=== PATIENT | female | born 1945 | race Caucasian/White ===

== ENCOUNTER 2017-07-19 14:14 | Emergency (ER) | payer MEDICARE, BC ==
[2017-07-19 15:17] VITALS: TEMP 98.1
[2017-07-19 15:49] VITALS: BP 103/54; PULSE 78; RESP 18; O2SAT 100
== END 2017-07-19 15:45 | disposition home or self-care (01) | DRG 863 ==
LOC: ED 14:14
DX: T81.4XXA Infection following a procedure, initial encounter (principal); L08.9 Local infection of the skin and subcutaneous tissue, unspecified
CPT/HCPCS: 87205; 99283

== ENCOUNTER 2017-08-12 17:15 | Emergency (ER) | payer MEDICARE, BC ==
[2017-08-12 17:41] VITALS: RESP 20; TEMP 97.1
[2017-08-12 18:47] VITALS: BP 124/61; PULSE 69; O2SAT 99
== END 2017-08-12 19:05 | disposition home or self-care (01) | DRG 153 ==
LOC: ED 17:15
DX: J06.9 Acute upper respiratory infection, unspecified (principal); N18.4 Chronic kidney disease, stage 4 (severe); I50.9 Heart failure, unspecified
CPT/HCPCS: 71020; 80048; 83880; 85025; 85610; 99283

== ENCOUNTER 2017-11-04 19:07 | Emergency (ER) | payer MEDICARE, BC ==
[2017-11-04 19:25] VITALS: RESP 20; TEMP 98
[2017-11-04 19:54] LABS: BASOPHILS % (AUTO) 1 % (0-3); EOSINOPHILS % (AUTO) 3 % (0-9); HEMATOCRIT 41 % (35-47); MEAN CORPUSCULAR HGB CONC 30.3 gm/dl (32.0-36.0); MEAN CORPUSCULAR VOLUME 100 fL (81-99); MONOCYTES % (AUTO) 5.5 % (0-12); NEUTROPHILS % (AUTO) 84.7 % (37-80)
[2017-11-04 20:02] LABS: CALCIUM 9.3 mg/dl (8.5-10.1); POTASSIUM 4.1 mMol/L (3.5-5.1)
[2017-11-04 21:47] VITALS: BP 127/66; PULSE 76; O2SAT 100
== END 2017-11-04 21:34 | disposition home or self-care (01) | DRG 392 ==
LOC: ED 19:07
DX: R10.30 Lower abdominal pain, unspecified (principal); L03.311 Cellulitis of abdominal wall; Z79.01 Long term (current) use of anticoagulants
CPT/HCPCS: 36415; 74176; 80048; 85025; 85610; 99284

== ENCOUNTER 2017-11-16 10:35 | Emergency (ER) | payer MEDICARE, BC ==
[2017-11-16 11:01] VITALS: TEMP 97.6
[2017-11-16 11:35] LABS: BASOPHILS % (AUTO) 0 % (0-3); EOSINOPHILS % (AUTO) 0 % (0-9); HEMATOCRIT 42 % (35-47); MEAN CORPUSCULAR HGB CONC 29.8 gm/dl (32.0-36.0); MONOCYTES % (AUTO) 8.6 % (0-12); NEUTROPHILS % (AUTO) 87.3 % (37-80)
[2017-11-16 11:40] LABS: MEAN CORPUSCULAR VOLUME 99 fL (81-99)
[2017-11-16 11:51] LABS: ALBUMIN 2.7 gm/dl (3.4-5.0); BILIRUBIN,DIRECT 0.2 mg/dl (0.0-0.2); CALCIUM 9.6 mg/dl (8.5-10.1); POTASSIUM 5.9 mMol/L (3.5-5.1)
[2017-11-16 12:44] LABS: ABG PH 7.31 (7.35-7.45)
[2017-11-16 13:25] VITALS: RESP 18
[2017-11-16] MEDS ORDERED: LACTATED RINGERS 1,000 ML IV SCH (13:30)
[2017-11-16 13:35] VITALS: BP 99/78; PULSE 74; O2SAT 97
[2017-11-16] MEDS ORDERED: VANCOMYCIN HYDROCHLORIDE 500 MG PDS IV ONE ×2 (13:37)
[2017-11-16] MEDS ORDERED: PIPERACILLIN/TAZOBACT 3.375 GM PDS IV ONE (13:37)
[2017-11-16] MEDS ORDERED: INSULIN HUMAN REGULAR 100 U/ML SOL IV ONE (13:39)
[2017-11-16] MEDS ORDERED: INSULIN HUMAN REGULAR 100 U/ML SOL ONE ×2 (13:47→14:34)
[2017-11-16] MEDS ORDERED: SODIUM CHLORIDE 0.9% IV ONE (13:50)
[2017-11-16] MEDS ORDERED: VANCOMYCIN HCL 500 MG PDS 2,000 MG in SODIUM CHLORIDE 0.9% 500 ML 500 ML IV ONE (13:50)
[2017-11-16] MEDS ORDERED: TAZOBACT IV ONE (13:50)
[2017-11-16] MEDS ORDERED: PIPERACILLIN IV ONE (13:50)
== END 2017-11-16 14:00 | disposition short-term general hospital (02) | DRG 189 ==
LOC: ED 10:35
DX: J96.01 Acute respiratory failure with hypoxia (principal); G93.49 Other encephalopathy; N18.6 End stage renal disease; L03.311 Cellulitis of abdominal wall; J96.91 Respiratory failure, unspecified with hypoxia; Z99.2 Dependence on renal dialysis
CPT/HCPCS: 36415; 36600; 71045; 80048; 80076; 82803; 82962; 85025; 85610; 87040; 93005; 99291; J1815; J2543; J3370